=== PATIENT | male | born 1950 | race Caucasian/White ===

== ENCOUNTER 2017-06-21 20:00 | Emergency (ER) | payer MEDICARE, MEDICAID ==
[~2017-06-21] VITALS: Ht 167.6 cm; Wt 78.0 kg
[2017-06-21] MEDS ORDERED: DIPHENHYDRAMINE 50MG/ML VIAL IV ONE (20:15)
[2017-06-21] MEDS ORDERED: FAMOTIDINE 20MG/2ML VIAL IV STA (20:15)
[2017-06-21] MEDS ORDERED: METHYLPREDNISOLONE SOD SUCC 125 MG/2 ML VIAL IV ONE (20:15)
[2017-06-21] MEDS ORDERED: PERMETHRIN 5% CREAM 60GM TOP ONE (20:30)
[2017-06-21 21:02] LABS: CLARITY URINE CLEAR (CLEAR); COLOR URINE YELLOW (YELLOW); GLUCOSE URINE NEGATIVE (NEGATIVE); KETONES URINE NEGATIVE (NEGATIVE); LEUKOCYTE ESTERASE URINE NEGATIVE (NEGATIVE); NITRITE URINE NEGATIVE (NEGATIVE); OCCULT BLOOD URINE TRACE (NEGATIVE); PROTEIN URINE 1+ (NEGATIVE); SPECIFIC GRAVITY URINE 1.013 (1.005-1.030); UROBILINOGEN URINE 0.2 E.U./dL (0.2-1.0)
[2017-06-21 21:11] LABS: *AMPHETAMINES SCREEN URINE NEGATIVE (NEGATIVE); *BARBITURATES SCREEN URINE NEGATIVE (NEGATIVE); *BENZODIAZEPINES SCREEN URINE NEGATIVE (NEGATIVE); *COCAINE SCREEN URINE NEGATIVE (NEGATIVE); CANNABINOID URINE SCREEN NEGATIVE (NEGATIVE); METHADONE URINE SCREEN NEGATIVE (NEGATIVE); OPIATES URINE SCREEN NEGATIVE (NEGATIVE); PHENCYCLIDINE URINE SCREEN NEGATIVE (NEGATIVE)
[2017-06-21 21:37] LABS: BASOPHILS % 1.2 % (0.0-2.0); HEMATOCRIT. 41.5 % (42.0-52.0); HEMOGLOBIN. 14.3 g/dL (14.0-18.0); LYMPHOCYTES % 23.8 % (20.0-50.0); MEAN CORPUSCULAR HEMOGLOBIN 33.4 pg (28.0-32.0); MEAN CORPUSCULAR VOLUME 96.8 fL (80.0-94.0); MEAN PLATELET VOLUME 8.5 fl (7.4-10.4); MONOCYTES % 9.8 % (2.0-8.0); NEUTROPHILS % 63.2 % (40.0-76.0); PLATELET 151 x1000/uL (130-400); RED BLOOD CELL COUNT 4.29 mill/uL (4.7-6.1); RED CELL DISTRIBUTION WIDTH 14.6 % (11.6-14.6)
[2017-06-21 21:38] LABS: INR 1.1
[2017-06-21 21:43] LABS: CARBON DIOXIDE 23 mEq/L (21-32); CHLORIDE 103 mEq/L (98-107); ETHANOL BLOOD 146 mg/dL
[2017-06-21 21:46] LABS: TROPONIN I < 0.02 ng/mL (0.00-0.04)
[2017-06-21 22:30] VITALS: BP 154/99
== END 2017-06-21 23:29 | disposition home or self-care (01) ==
LOC: ER 20:57
DX: B86 Scabies (principal); J40 Bronchitis, not specified as acute or chronic; F10.10 Alcohol abuse, uncomplicated; F17.200 Nicotine dependence, unspecified, uncomplicated; F12.10 Cannabis abuse, uncomplicated; I10 Essential (primary) hypertension; Z88.5 Allergy status to narcotic agent
CPT/HCPCS: 36415; 71010; 80053; 80305; 81001; 83690; 83880; 84484; 85025; 85610; 96374; 96375; 99285; G0482; J1200; J2930; J3490

== ENCOUNTER 2017-06-22 05:09 | Emergency (ER) | payer MEDICARE, MEDICAID ==
[~2017-06-22] VITALS: Ht 167.6 cm; Wt 73.5 kg
[2017-06-22 09:02] LABS: BASOPHILS % 0.4 % (0.0-2.0); HEMATOCRIT. 43.5 % (42.0-52.0); HEMOGLOBIN. 15.2 g/dL (14.0-18.0); LYMPHOCYTES % 15.4 % (20.0-50.0); MEAN CORPUSCULAR HEMOGLOBIN 33.8 pg (28.0-32.0); MEAN CORPUSCULAR VOLUME 96.9 fL (80.0-94.0); MEAN PLATELET VOLUME 8.7 fl (7.4-10.4); MONOCYTES % 5.4 % (2.0-8.0); NEUTROPHILS % 78.8 % (40.0-76.0); PLATELET 145 x1000/uL (130-400); RED BLOOD CELL COUNT 4.49 mill/uL (4.7-6.1); RED CELL DISTRIBUTION WIDTH 14.7 % (11.6-14.6)
[2017-06-22 09:05] LABS: CHLORIDE 97 mEq/L (98-107)
[2017-06-22 09:06] LABS: INR 1.2; PROTHROMBIN TIME 12.3 sec
[2017-06-22 09:15] LABS: CARBON DIOXIDE 24 mEq/L (21-32); TROPONIN I 0.04 ng/mL (0.00-0.04)
[2017-06-22] MEDS ORDERED: HYDRALAZINE HCL 50MG TABLET PO ONE ×2 (11:30→13:00)
[2017-06-22 13:32] VITALS: BP 160/93
== END 2017-06-22 14:30 | disposition home or self-care (01) ==
LOC: ER 08:22
DX: Z00.8 Encounter for other general examination (principal); R07.9 Chest pain, unspecified; R21 Rash and other nonspecific skin eruption; E11.9 Type 2 diabetes mellitus without complications; F03.90 Unspecified dementia, unspecified severity, without behavioral disturbance, psychotic disturbance, mood disturbance, and anxiety; F17.210 Nicotine dependence, cigarettes, uncomplicated
CPT/HCPCS: 36415; 71010; 80053; 83880; 84484; 85025; 85610; 93005; 99285

== ENCOUNTER 2017-06-30 19:38 | Inpatient (IN) | payer MEDICARE, MEDICAID ==
[~2017-06-30] VITALS: Ht 162.6 cm; Wt 74.8 kg
[2017-06-30 23:11] LABS: *AMPHETAMINES SCREEN URINE NEGATIVE (NEGATIVE); *BARBITURATES SCREEN URINE NEGATIVE (NEGATIVE); *BENZODIAZEPINES SCREEN URINE NEGATIVE (NEGATIVE); *COCAINE SCREEN URINE NEGATIVE (NEGATIVE); CANNABINOID URINE SCREEN NEGATIVE (NEGATIVE); METHADONE URINE SCREEN NEGATIVE (NEGATIVE); OPIATES URINE SCREEN NEGATIVE (NEGATIVE); PHENCYCLIDINE URINE SCREEN NEGATIVE (NEGATIVE)
[2017-06-30 23:45] LABS: BASOPHILS % 0.8 % (0.0-2.0); HEMATOCRIT. 37.1 % (42.0-52.0); HEMOGLOBIN. 12.7 g/dL (14.0-18.0); LYMPHOCYTES % 23.1 % (20.0-50.0); MEAN CORPUSCULAR HEMOGLOBIN 34.1 pg (28.0-32.0); MEAN CORPUSCULAR VOLUME 99.8 fL (80.0-94.0); MEAN PLATELET VOLUME 9.8 fl (7.4-10.4); MONOCYTES % 12.2 % (2.0-8.0); NEUTROPHILS % 60.9 % (40.0-76.0); PLATELET 213 x1000/uL (130-400); RED BLOOD CELL COUNT 3.72 mill/uL (4.7-6.1); RED CELL DISTRIBUTION WIDTH 15.5 % (11.6-14.6)
[2017-06-30 23:54] LABS: PROTHROMBIN TIME 10.8 sec
[2017-07-01] LABS: CARBON DIOXIDE 24 mEq/L (21-32); CHLORIDE 105 mEq/L (98-107); ETHANOL BLOOD 43 mg/dL; TROPONIN I < 0.02 ng/mL (0.00-0.04)
[2017-07-01] MEDS ORDERED: NITROGLYCERIN 0.4MG TABLET SL SL PRN ×2 (01:00→01:45)
[2017-07-01] MEDS ORDERED: ASPIRIN 81MG TABLET PO ONE (01:00)
[2017-07-01] MEDS ORDERED: LORAZEPAM 1MG TABLET PO ONE (01:00)
[2017-07-01] MEDS ORDERED: ACETAMINOPHEN 325MG TABLET PO PRN (01:45)
[2017-07-01] MEDS ORDERED: LORAZEPAM 2MG/ML CPJ IV PRN (01:45)
[2017-07-01] MEDS ORDERED: GUAIFENESIN 200MG/10ML SUGAR FREE UDC PO PRN (01:45)
[2017-07-01] MEDS ORDERED: IPRATROPIUM/ALBUTEROL 0.5-3(2.5)MG/3ML NEB INH PRN (01:45)
[2017-07-01] MEDS ORDERED: ONDANSETRON HCL 4MG/2ML VIAL IV PRN (01:45)
[2017-07-01] MEDS ORDERED: NA PHOS,M-B/NA PHOS,DI-BA ENEMA 118ML PR PRN (01:45)
[2017-07-01] MEDS ORDERED: DIPHENHYDRAMINE 50MG/ML VIAL IV PRN (01:45)
[2017-07-01] MEDS ORDERED: MAGNESIUM/ALUMINUM HYDROXIDE/SIMETHICONE 30ML UDC PO PRN (01:45)
[2017-07-01] MEDS ORDERED: CLONIDINE 0.1MG TABLET PO PRN (02:30)
[2017-07-01] MEDS ORDERED: DOCUSATE SODIUM 100MG CAPSULE PO PRN (02:30)
[2017-07-01] MEDS ORDERED: TRAMADOL 50MG TABLET PO PRN (02:33)
[2017-07-01] MEDS ORDERED: MORPHINE SULFATE 2 MG/ML CPJ (NOT FOR IM USE) IV PRN (02:37)
[2017-07-01 07:02] LABS: CREATINE KINASE 138 IU/L (39-308); CREATINE KINASE MB FRACTION 1.6 ng/mL (0.5-3.6); TROPONIN I < 0.02 ng/mL (0.00-0.04)
[2017-07-01 07:31] LABS: FOLIC ACID (FOLATE) SERUM 11.8 ng/mL (>5.38)
[2017-07-01 09:20] VITALS: BP 160/80
[2017-07-01 10:00] VITALS: BP 160/80
[2017-07-01] MEDS: FAMOTIDINE 20MG/2ML VIAL IV SCH ×2 (10:24→20:30)
[2017-07-01] MEDS: ENOXAPARIN 40MG/0.4ML SYR SUBCUT SCH (10:25)
[2017-07-01] MEDS: ASPIRIN 325MG EC TABLET PO SCH (10:25)
[2017-07-01 12:00] VITALS: BP 144/93
[2017-07-01] MEDS: SUCRALFATE 1 G/10 ML UDC PO SCH ×3 (13:07→20:30)
[2017-07-01 16:00] VITALS: BP 169/82
[2017-07-01 18:30] LABS: CREATINE KINASE 114 IU/L (39-308); CREATINE KINASE MB FRACTION 1.4 ng/mL (0.5-3.6); TROPONIN I < 0.02 ng/mL (0.00-0.04)
[2017-07-01 20:00] VITALS: BP 108/78
[2017-07-01] MEDS: AMLODIPINE 5MG TABLET PO SCH (20:31)
[2017-07-01] MEDS ORDERED: ZOLPIDEM TARTRATE 5MG TABLET PO PRN (21:00)
[2017-07-01] MEDS ORDERED: ATORVASTATIN CALCIUM 10MG TABLET PO SCH (21:00)
[2017-07-02 00:19] VITALS: BP 146/84
[2017-07-02 04:00] VITALS: BP 148/79
[2017-07-02 07:00] LABS: EOSINOPHILS % 4.5 % (0.0-5.0); HEMATOCRIT. 35.2 % (42.0-52.0); LYMPHOCYTES % 33.6 % (20.0-50.0); MEAN CORPUSCULAR HEMOGLOBIN 34.1 pg (28.0-32.0); MEAN CORPUSCULAR VOLUME 99.8 fL (80.0-94.0); MEAN PLATELET VOLUME 9.5 fl (7.4-10.4); MONOCYTES % 14.9 % (2.0-8.0); PLATELET 215 x1000/uL (130-400); RED BLOOD CELL COUNT 3.53 mill/uL (4.7-6.1); RED CELL DISTRIBUTION WIDTH 15.5 % (11.6-14.6)
[2017-07-02 08:00] VITALS: BP 148/85
[2017-07-02 08:22] LABS: CARBON DIOXIDE 27 mEq/L (21-32); CHLORIDE 97 mEq/L (98-107); TROPONIN I < 0.02 ng/mL (0.00-0.04)
[2017-07-02] MEDS: AMLODIPINE 5MG TABLET PO SCH (08:37)
[2017-07-02] MEDS: ENOXAPARIN 40MG/0.4ML SYR SUBCUT SCH (08:37)
[2017-07-02] MEDS: ASPIRIN 325MG EC TABLET PO SCH (08:37)
[2017-07-02] MEDS: SUCRALFATE 1 G/10 ML UDC PO SCH (08:37)
[2017-07-02] MEDS: FAMOTIDINE 20MG/2ML VIAL IV SCH (08:42)
[2017-07-02] MEDS ORDERED: PERMETHRIN 5% CREAM 60GM TOP SCH (11:00)
== END 2017-07-02 11:15 | disposition left against medical advice (07) | DRG 392 ==
LOC: ER 20:41 → 7WST 07-01 01:19 → SUPCPDRO 07-01 01:35 → ENRESERV 07-01 08:18
PROVIDERS: ADMIT Internal Medicine; ATTEND Internal Medicine
DX: K21.9 Gastro-esophageal reflux disease without esophagitis (principal); E44.0 Moderate protein-calorie malnutrition; J44.1 Chronic obstructive pulmonary disease with (acute) exacerbation; F10.229 Alcohol dependence with intoxication, unspecified; R27.0 Ataxia, unspecified; I11.9 Hypertensive heart disease without heart failure; D50.9 Iron deficiency anemia, unspecified; E78.5 Hyperlipidemia, unspecified; K73.9 Chronic hepatitis, unspecified; Z53.21 Procedure and treatment not carried out due to patient leaving prior to being seen by health care provider; F12.10 Cannabis abuse, uncomplicated; R07.89 Other chest pain; Z79.899 Other long term (current) drug therapy; Z87.891 Personal history of nicotine dependence; Z81.1 Family history of alcohol abuse and dependence
CPT/HCPCS: 36415; 71010; 80048; 80053; 80061; 80305; 82550; 82553; 82607; 82746; 83036; 83540; 83550; 83880; 84484; 85025; 85610; 93005; 93306; 93970; 94640; 96372; 96374; 97162; 97166; 99285; G0482; J1650; J3490; J7620

== ENCOUNTER 2017-07-11 16:02 | Emergency (ER) | payer MEDICARE, MEDICAID ==
[~2017-07-11] VITALS: Ht 167.6 cm; Wt 70.0 kg
[2017-07-11 19:28] VITALS: BP 207/104
== END 2017-07-11 19:16 | disposition home or self-care (01) ==
LOC: ER 16:14
DX: R07.9 Chest pain, unspecified (principal); I10 Essential (primary) hypertension; Z88.5 Allergy status to narcotic agent
CPT/HCPCS: 93005; 99283

== ENCOUNTER 2017-07-27 00:24 | Inpatient (IN) | payer MEDICARE, MEDICAID ==
[~2017-07-27] VITALS: Ht 167.6 cm; Wt 71.3 kg
[2017-07-27] VITALS (53 sets, daily range): BP systolic 102–170; BP diastolic 58–99
[2017-07-27] MEDS ORDERED: ONDANSETRON HCL 4MG/2ML VIAL IV STA (01:34)
[2017-07-27] MEDS ORDERED: SODIUM CHLORIDE 0.9% 1,000 ML IV ONE ×2 (01:34)
[2017-07-27 02:26] LABS: BASOPHILS % 0.6 % (0.0-2.0); EOSINOPHILS % 6.9 % (0.0-5.0); HEMOGLOBIN. 13.1 g/dL (14.0-18.0); LYMPHOCYTES % 45.2 % (20.0-50.0); MEAN CORPUSCULAR VOLUME 101.5 fL (80.0-94.0); MEAN PLATELET VOLUME 9.5 fl (7.4-10.4); MONOCYTES % 12.4 % (2.0-8.0); NEUTROPHILS % 34.9 % (40.0-76.0); PLATELET 155 x1000/uL (130-400); RED BLOOD CELL COUNT 3.85 mill/uL (4.7-6.1); RED CELL DISTRIBUTION WIDTH 15.3 % (11.6-14.6)
[2017-07-27 02:35] LABS: CARBON DIOXIDE 22 mEq/L (21-32); CHLORIDE 104 mEq/L (98-107)
[2017-07-27] MEDS ORDERED: DEXAMETHASONE 10 MG/ML VIAL IV ONE (05:15)
[2017-07-27] MEDS ORDERED: PHENYTOIN SODIUM 1,000 MG in SODIUM CHLORIDE 0.9% 100 ML IV ONE (05:15)
[2017-07-27] MEDS ORDERED: PHENYTOIN SODIUM 100MG/2ML VIAL IV ONE (05:28)
[2017-07-27] MEDS ORDERED: MANNITOL 12.5G (25%) VIAL 50ML IV ONE (05:30)
[2017-07-27] MEDS ORDERED: LORAZEPAM 2MG/ML CPJ IV ONE (05:30)
[2017-07-27] MEDS ORDERED: MANNITOL 20% 500 ML IV ONE (09:15)
[2017-07-27] MEDS ORDERED: ONDANSETRON HCL 4MG/2ML VIAL IV PRN (09:15)
[2017-07-27] MEDS ORDERED: MANNITOL 20% 125 ML IV ONE (09:15)
[2017-07-27] MEDS ORDERED: DEXTROSE 50% WATER 50ML SYRINGE IV PRN (09:30)
[2017-07-27] MEDS: POTASSIUM CHLORIDE INJ 40 MEQ in SODIUM CHLORIDE 0.9% 250 ML IV SCH ×2 (09:58→14:00)
[2017-07-27] MEDS ORDERED: POTASSIUM CHLORIDE INJ 40 MEQ in DEXT 5% WATER 500 ML IV SCH (10:00)
[2017-07-27] MEDS ORDERED: MANNITOL 20% (20GM/100ML) BAG 500ML PREMIX IV SCH (10:00)
[2017-07-27 10:03] LABS: BG BASE EXCESS -7.1 mmol/L (-2.0-2.0); BG CARBOXYHEMOGLOBIN 0.8 % (0.5-1.5); BG DEOXYHEMOGLOBIN 6.6 % (0.0-5.0); BG FRACTION INSPIRED OXYGEN 32; BG HCO3 ACT 20.1 mmol/L (22.0-26.0); BG METHEMOGLOBIN 0.4 % (0.0-1.5); BG OXYGEN SATURATION 93.3 % (92.0-98.5); BG OXYHEMOGLOBIN 92.2 % (94.0-97.0); BG PCO2 46.6 mmHg (35.0-45.0); BG PH 7.253 (7.350-7.450); BG PO2 82.6 mmHg (75.0-100.0); BG SAMPLE SITE RIGHT BRACHIAL; BG VENT MODE NASAL CANNULA
[2017-07-27 10:18] LABS: CLARITY URINE CLEAR (CLEAR); COLOR URINE YELLOW (YELLOW); GLUCOSE URINE NEGATIVE (NEGATIVE); KETONES URINE NEGATIVE (NEGATIVE); LEUKOCYTE ESTERASE URINE NEGATIVE (NEGATIVE); NITRITE URINE NEGATIVE (NEGATIVE); OCCULT BLOOD URINE 1+ (NEGATIVE); PROTEIN URINE NEGATIVE (NEGATIVE); SPECIFIC GRAVITY URINE 1.007 (1.005-1.030); UROBILINOGEN URINE 0.2 E.U./dL (0.2-1.0)
[2017-07-27 10:54] LABS: *AMPHETAMINES SCREEN URINE NEGATIVE (NEGATIVE); *BARBITURATES SCREEN URINE NEGATIVE (NEGATIVE); *BENZODIAZEPINES SCREEN URINE NEGATIVE (NEGATIVE); *COCAINE SCREEN URINE NEGATIVE (NEGATIVE); CANNABINOID URINE SCREEN NEGATIVE (NEGATIVE); METHADONE URINE SCREEN NEGATIVE (NEGATIVE); OPIATES URINE SCREEN NEGATIVE (NEGATIVE); PHENCYCLIDINE URINE SCREEN NEGATIVE (NEGATIVE)
[2017-07-27] MEDS ORDERED: IPRATROPIUM/ALBUTEROL 0.5-3(2.5)MG/3ML NEB HHN PRN (11:30)
[2017-07-27] MEDS: BLOOD SUGAR DIAGNOSTIC STRIP TEST SCH ×3 (11:30→21:00)
[2017-07-27] MEDS: INSULIN LISPRO 100 UNITS/ML SUBCUT SCH ×3 (12:00→22:12)
[2017-07-27] MEDS: DEXT 5%/LACTATED RINGERS 1,000 ML IV SCH (13:46)
[2017-07-27] MEDS: PHENYTOIN SODIUM 100MG/2ML VIAL IV SCH ×2 (13:51→22:14)
[2017-07-27] MEDS ORDERED: POTASSIUM CHLORIDE INJ 40 MEQ in DEXT 5% WATER 500 ML IV NR (14:00)
[2017-07-27 14:31] LABS: HEPATITIS B SURFACE ANTIGEN NEGATIVE
[2017-07-27 14:59] LABS: HEPATITIS B CORE AB IGM NEGATIVE
[2017-07-27 15:01] LABS: HEPATITIS A AB IGM NEGATIVE (NEGATIVE)
[2017-07-27] MEDS: LORAZEPAM 2MG/ML CPJ IV PRN (15:53)
[2017-07-27] MEDS: DEXAMETHASONE 4MG/ML 1ML VIAL IV SCH (17:19)
[2017-07-27] MEDS: NICARDIPINE 100 MG in SODIUM CHLORIDE 0.9% 60 ML IV PRN (18:19)
[2017-07-28] VITALS (72 sets, daily range): BP systolic 89–193; BP diastolic 36–125
[2017-07-28 00:03] LABS: AMMONIA 44 uMol/L (<32)
[2017-07-28] MEDS: DEXAMETHASONE 4MG/ML 1ML VIAL IV SCH ×3 (00:24→12:14)
[2017-07-28] MEDS: LORAZEPAM 2MG/ML CPJ IV PRN ×3 (05:18→20:06)
[2017-07-28] MEDS: PHENYTOIN SODIUM 100MG/2ML VIAL IV SCH (05:18)
[2017-07-28 05:52] LABS: BASOPHILS % 0.4 % (0.0-2.0); HEMATOCRIT. 39.7 % (42.0-52.0); HEMOGLOBIN. 13.5 g/dL (14.0-18.0); LYMPHOCYTES % 11.1 % (20.0-50.0); MEAN CORPUSCULAR HEMOGLOBIN 33.8 pg (28.0-32.0); MEAN CORPUSCULAR VOLUME 99.8 fL (80.0-94.0); MEAN PLATELET VOLUME 10.3 fl (7.4-10.4); MONOCYTES % 8.3 % (2.0-8.0); NEUTROPHILS % 80.2 % (40.0-76.0); PLATELET 153 x1000/uL (130-400); RED BLOOD CELL COUNT 3.98 mill/uL (4.7-6.1); RED CELL DISTRIBUTION WIDTH 15.4 % (11.6-14.6)
[2017-07-28] MEDS: INSULIN LISPRO 100 UNITS/ML SUBCUT SCH ×4 (06:06→21:02)
[2017-07-28] MEDS: BLOOD SUGAR DIAGNOSTIC STRIP TEST SCH ×4 (06:06→20:56)
[2017-07-28 06:32] LABS: CARBON DIOXIDE 25 mEq/L (21-32); CHLORIDE 103 mEq/L (98-107)
[2017-07-28] MEDS: DEXT 5%/LACTATED RINGERS 1,000 ML IV SCH ×2 (06:37→23:05)
[2017-07-28 07:31] LABS: BG BASE EXCESS 4.2 mmol/L (-2.0-2.0); BG CARBOXYHEMOGLOBIN 0.6 % (0.5-1.5); BG DEOXYHEMOGLOBIN 6.6 % (0.0-5.0); BG HCO3 ACT 27.5 mmol/L (22.0-26.0); BG METHEMOGLOBIN 0.4 % (0.0-1.5); BG OXYGEN SATURATION 93.3 % (92.0-98.5); BG OXYHEMOGLOBIN 92.4 % (94.0-97.0); BG PCO2 36.7 mmHg (35.0-45.0); BG PH 7.492 (7.350-7.450); BG PO2 64.7 mmHg (75.0-100.0); BG SAMPLE SITE RIGHT RADIAL; BG TOTAL HEMOGLOBIN 14.6 g/dL (12.0-18.0); BG VENT MODE ROOM AIR
[2017-07-28] MEDS ORDERED: POTASSIUM CHLORIDE 20MEQ/PACKET PO SCH (08:15)
[2017-07-28] MEDS ORDERED: MAGNESIUM 2 G PREMIX 50 ML IV SCH (09:00)
[2017-07-28] MEDS ORDERED: THIAMINE HCL 100MG TABLET PO NR (09:30)
[2017-07-28] MEDS ORDERED: CLONIDINE 0.1MG TABLET PO PRN (09:30)
[2017-07-28] MEDS ORDERED: NICOTINE 21MG PATCH TD NR (09:30)
[2017-07-28] MEDS: CARVEDILOL 12.5MG TABLET PO SCH ×2 (09:57→21:02)
[2017-07-28] MEDS: MULTIVITAMINS,THER W-MINERALS TABLET PO SCH (09:57)
[2017-07-28] MEDS: FOLIC ACID 1MG TABLET PO SCH (09:58)
[2017-07-28] MEDS ORDERED: IPRATROPIUM/ALBUTEROL 0.5-3(2.5)MG/3ML NEB HHN PRN (10:00)
[2017-07-28] MEDS: CHLORDIAZEPOXIDE 5 MG CAPSULE PO SCH ×3 (11:43→21:01)
[2017-07-28 12:04] LABS: T4 FREE 0.89 ng/dL (0.76-1.46)
[2017-07-28] MEDS ORDERED: PERMETHRIN 5% CREAM 60GM TOP SCH (13:00)
[2017-07-28] MEDS: HALOPERIDOL LACTATE 5MG/ML VIAL IM PRN ×2 (13:34→22:22)
[2017-07-28 13:54] LABS: AMMONIA 38 uMol/L (<32)
[2017-07-28] MEDS ORDERED: PHENYTOIN SODIUM EXTENDED 100MG CAPSULE PO SCH (14:00)
[2017-07-28] MEDS: IPRATROPIUM/ALBUTEROL 0.5-3(2.5)MG/3ML NEB HHN SCH ×2 (14:24→20:14)
[2017-07-28] MEDS: NICARDIPINE 100 MG in SODIUM CHLORIDE 0.9% 60 ML IV PRN (20:05)
[2017-07-28] MEDS: RISPERIDONE 0.5MG TABLET PO SCH (21:02)
[2017-07-29] VITALS (48 sets, daily range): BP systolic 105–169; BP diastolic 29–124
[2017-07-29] MEDS: LORAZEPAM 2MG/ML CPJ IV PRN ×4 (01:12→21:46)
[2017-07-29] MEDS: IPRATROPIUM/ALBUTEROL 0.5-3(2.5)MG/3ML NEB HHN SCH ×4 (01:55→20:41)
[2017-07-29] MEDS: CHLORDIAZEPOXIDE 5 MG CAPSULE PO SCH ×3 (05:57→21:28)
[2017-07-29] MEDS: OMEPRAZOLE 20MG CAPSULE EXTENDED RELEASE PO SCH (05:58)
[2017-07-29] MEDS: INSULIN LISPRO 100 UNITS/ML SUBCUT SCH ×4 (05:59→20:23)
[2017-07-29 06:25] LABS: BASOPHILS % 0.4 % (0.0-2.0); HEMATOCRIT. 43.6 % (42.0-52.0); HEMOGLOBIN. 14.9 g/dL (14.0-18.0); LYMPHOCYTES % 14.4 % (20.0-50.0); MEAN CORPUSCULAR VOLUME 99.5 fL (80.0-94.0); MEAN PLATELET VOLUME 10.7 fl (7.4-10.4); MONOCYTES % 11.5 % (2.0-8.0); NEUTROPHILS % 73.7 % (40.0-76.0); PLATELET 170 x1000/uL (130-400); RED BLOOD CELL COUNT 4.38 mill/uL (4.7-6.1); RED CELL DISTRIBUTION WIDTH 15.1 % (11.6-14.6)
[2017-07-29] MEDS: BLOOD SUGAR DIAGNOSTIC STRIP TEST SCH ×4 (06:30→20:19)
[2017-07-29 07:55] LABS: CARBON DIOXIDE 26 mEq/L (21-32); CHLORIDE 100 mEq/L (98-107); PHOSPHORUS 2.4 mg/dL (2.5-4.9)
[2017-07-29] MEDS: MULTIVITAMINS,THER W-MINERALS TABLET PO SCH (08:17)
[2017-07-29] MEDS: THIAMINE HCL 100MG TABLET PO SCH (08:18)
[2017-07-29] MEDS: NICOTINE 21MG PATCH TD SCH (08:19)
[2017-07-29] MEDS: CARVEDILOL 12.5MG TABLET PO SCH ×2 (08:19→20:01)
[2017-07-29] MEDS: FOLIC ACID 1MG TABLET PO SCH (08:19)
[2017-07-29] MEDS: HALOPERIDOL LACTATE 5MG/ML VIAL IM PRN (16:30)
[2017-07-29] MEDS: RISPERIDONE 0.5MG TABLET PO SCH (20:22)
[2017-07-30] VITALS (46 sets, daily range): BP systolic 89–179; BP diastolic 45–102
[2017-07-30] MEDS: IPRATROPIUM/ALBUTEROL 0.5-3(2.5)MG/3ML NEB HHN SCH ×4 (02:29→20:10)
[2017-07-30] MEDS: LORAZEPAM 2MG/ML CPJ IV PRN ×3 (04:19→22:52)
[2017-07-30] MEDS: BLOOD SUGAR DIAGNOSTIC STRIP TEST SCH ×4 (06:05→20:29)
[2017-07-30] MEDS: INSULIN LISPRO 100 UNITS/ML SUBCUT SCH ×4 (06:31→20:40)
[2017-07-30] MEDS: OMEPRAZOLE 20MG CAPSULE EXTENDED RELEASE PO SCH (06:56)
[2017-07-30] MEDS: CHLORDIAZEPOXIDE 5 MG CAPSULE PO SCH ×3 (06:56→22:10)
[2017-07-30] MEDS: THIAMINE HCL 100MG TABLET PO SCH (08:52)
[2017-07-30] MEDS: FOLIC ACID 1MG TABLET PO SCH (08:52)
[2017-07-30] MEDS: MULTIVITAMINS,THER W-MINERALS TABLET PO SCH (08:52)
[2017-07-30] MEDS: CARVEDILOL 12.5MG TABLET PO SCH ×2 (08:53→20:39)
[2017-07-30] MEDS: NICOTINE 21MG PATCH TD SCH (09:41)
[2017-07-30] MEDS ORDERED: LACTULOSE 20G/30ML UDC PO PRN (11:00)
[2017-07-30] MEDS ORDERED: LACTULOSE 20G/30ML UDC PO NR (11:00)
[2017-07-30] MEDS: METHYLPREDNISOLONE SOD SUCC 40 MG/ML VIAL IV SCH ×3 (11:45→22:10)
[2017-07-30] MEDS: DOCUSATE SODIUM 250MG CAPSULE PO SCH (11:45)
[2017-07-30] MEDS: RISPERIDONE 0.5MG TABLET PO SCH (16:22)
[2017-07-30] MEDS: BUDESONIDE 0.5MG/2ML NEB HHN SCH (20:10)
[2017-07-31] VITALS (36 sets, daily range): BP systolic 111–161; BP diastolic 65–106
[2017-07-31] MEDS: IPRATROPIUM/ALBUTEROL 0.5-3(2.5)MG/3ML NEB HHN SCH ×4 (01:20→19:59)
[2017-07-31] MEDS: INSULIN LISPRO 100 UNITS/ML SUBCUT SCH ×4 (05:52→21:06)
[2017-07-31] MEDS: BLOOD SUGAR DIAGNOSTIC STRIP TEST SCH ×4 (05:52→21:11)
[2017-07-31] MEDS: CHLORDIAZEPOXIDE 5 MG CAPSULE PO SCH ×3 (05:56→21:05)
[2017-07-31] MEDS: OMEPRAZOLE 20MG CAPSULE EXTENDED RELEASE PO SCH (05:56)
[2017-07-31] MEDS: METHYLPREDNISOLONE SOD SUCC 40 MG/ML VIAL IV SCH (05:56)
[2017-07-31] MEDS: BUDESONIDE 0.5MG/2ML NEB HHN SCH ×2 (08:29→19:59)
[2017-07-31] MEDS: MULTIVITAMINS,THER W-MINERALS TABLET PO SCH (09:26)
[2017-07-31] MEDS: DOCUSATE SODIUM 250MG CAPSULE PO SCH (09:26)
[2017-07-31] MEDS: THIAMINE HCL 100MG TABLET PO SCH (09:27)
[2017-07-31] MEDS: CARVEDILOL 12.5MG TABLET PO SCH ×2 (09:27→21:06)
[2017-07-31] MEDS: NICOTINE 21MG PATCH TD SCH (09:28)
[2017-07-31] MEDS: FOLIC ACID 1MG TABLET PO SCH (09:28)
[2017-07-31] MEDS: RISPERIDONE 0.5MG TABLET PO SCH ×2 (09:28→16:21)
[2017-07-31] MEDS ORDERED: COR12 PO (12:12)
[2017-07-31] MEDS ORDERED: FOLI-43 PO (12:12)
[2017-07-31] MEDS ORDERED: RISP05 PO (12:12)
[2017-07-31] MEDS ORDERED: DUONEB3 ML HHN (12:12)
[2017-07-31] MEDS ORDERED: P20 PO (12:12)
[2017-07-31] MEDS ORDERED: PULM50 HHN (12:12)
[2017-07-31] MEDS ORDERED: OMEP20CA10 PO (12:12)
[2017-07-31] MEDS ORDERED: THIA100T72 PO (12:12)
[2017-07-31] MEDS: PREDNISONE 20MG TABLET PO SCH (16:21)
[2017-07-31] MEDS: LORAZEPAM 2MG/ML CPJ IV PRN (22:31)
[2017-08-01] VITALS (31 sets, daily range): BP systolic 99–182; BP diastolic 51–123
[2017-08-01] MEDS: LORAZEPAM 2MG/ML CPJ IV PRN (01:43)
[2017-08-01] MEDS: IPRATROPIUM/ALBUTEROL 0.5-3(2.5)MG/3ML NEB HHN SCH ×4 (02:11→20:27)
[2017-08-01 05:32] LABS: AMMONIA 48 uMol/L (<32)
[2017-08-01] MEDS: OMEPRAZOLE 20MG CAPSULE EXTENDED RELEASE PO SCH (05:51)
[2017-08-01] MEDS: CHLORDIAZEPOXIDE 5 MG CAPSULE PO SCH ×2 (05:51→15:22)
[2017-08-01] MEDS: INSULIN LISPRO 100 UNITS/ML SUBCUT SCH ×3 (06:32→16:25)
[2017-08-01] MEDS: BLOOD SUGAR DIAGNOSTIC STRIP TEST SCH ×3 (06:33→16:26)
[2017-08-01] MEDS: PREDNISONE 20MG TABLET PO SCH ×2 (09:06→16:24)
[2017-08-01] MEDS: THIAMINE HCL 100MG TABLET PO SCH (09:06)
[2017-08-01] MEDS: DOCUSATE SODIUM 250MG CAPSULE PO SCH (09:06)
[2017-08-01] MEDS: FOLIC ACID 1MG TABLET PO SCH (09:06)
[2017-08-01] MEDS: RISPERIDONE 0.5MG TABLET PO SCH ×2 (09:07→16:23)
[2017-08-01] MEDS: CARVEDILOL 12.5MG TABLET PO SCH (09:08)
[2017-08-01] MEDS: MULTIVITAMINS,THER W-MINERALS TABLET PO SCH (09:08)
[2017-08-01] MEDS: NICOTINE 21MG PATCH TD SCH (09:08)
[2017-08-01] MEDS: BUDESONIDE 0.5MG/2ML NEB HHN SCH ×2 (09:35→20:27)
== END 2017-08-01 20:30 | DRG 64 ==
LOC: ER 02:57 → EDBEDREQ 06:07 → ENRESERV 07:36 → MICUNO 08:53
PROVIDERS: ADMIT Family Medicine; ATTEND Family Medicine
DX: I61.1 Nontraumatic intracerebral hemorrhage in hemisphere, cortical (principal); G92 Toxic encephalopathy; J96.00 Acute respiratory failure, unspecified whether with hypoxia or hypercapnia; F10.221 Alcohol dependence with intoxication delirium; J44.1 Chronic obstructive pulmonary disease with (acute) exacerbation; E11.9 Type 2 diabetes mellitus without complications; D64.9 Anemia, unspecified; I10 Essential (primary) hypertension; S01.81XA Laceration without foreign body of other part of head, initial encounter; F17.210 Nicotine dependence, cigarettes, uncomplicated; I51.7 Cardiomegaly; W18.30XA Fall on same level, unspecified, initial encounter; E87.6 Hypokalemia; E83.42 Hypomagnesemia; M47.812 Spondylosis without myelopathy or radiculopathy, cervical region; R62.7 Adult failure to thrive; Y90.9 Presence of alcohol in blood, level not specified; B19.20 Unspecified viral hepatitis C without hepatic coma; E66.9 Obesity, unspecified; Z68.25 Body mass index [BMI] 25.0-25.9, adult; Z88.8 Allergy status to other drugs, medicaments and biological substances; Y93.89 Activity, other specified; Y92.89 Other specified places as the place of occurrence of the external cause; Y99.8 Other external cause status
CPT/HCPCS: 36415; 36600; 51702; 70450; 70486; 71010; 72125; 72170; 80048; 80053; 80305; 81001; 82140; 82375; 82550; 82805; 82962; 83036; 83735; 84100; 84439; 84443; 84481; 85025; 86705; 86709; 86803; 87186; 87340; 94640; 94664; 95816; 96361; 96365; 96375; 97116; 97162; 97166; 97530; 99291; G0482; J1100; J1165; J1630; J1815; J2060; J2150; J2405; J2920; J3475; J3480; J3490; J7030; J7050; J7060; J7121; J7512; J7620; J7626; A4315

== ENCOUNTER 2017-08-30 13:56 | Inpatient (IN) | payer MEDICARE, MEDICAID ==
[~2017-08-30] VITALS: Ht 162.6 cm; Wt 75.3 kg
[~2017-08-30 13:56] MED LIST: COR12 PO; DUONEB3 ML HHN; FOLI-43 PO; OMEP20CA10 PO; P20 PO; PULM50 HHN; RISP05 PO; THIA100T72 PO
[2017-08-30] MEDS ORDERED: SODIUM CHLORIDE 0.9% 1,000 ML IV ONE ×2 (14:16→15:47)
[2017-08-30 14:40] LABS: BASOPHILS % 0.8 % (0.0-2.0); EOSINOPHILS % 3.7 % (0.0-5.0); HEMATOCRIT. 39.3 % (42.0-52.0); HEMOGLOBIN. 13.4 g/dL (14.0-18.0); LYMPHOCYTES % 32.2 % (20.0-50.0); MEAN CORPUSCULAR VOLUME 100.1 fL (80.0-94.0); MEAN PLATELET VOLUME 8.4 fl (7.4-10.4); MONOCYTES % 13.6 % (2.0-8.0); NEUTROPHILS % 49.7 % (40.0-76.0); PLATELET 255 x1000/uL (130-400); RED BLOOD CELL COUNT 3.93 mill/uL (4.7-6.1); RED CELL DISTRIBUTION WIDTH 14.4 % (11.6-14.6)
[2017-08-30] MEDS ORDERED: CARVEDILOL 12.5MG TABLET PO ONE (14:45)
[2017-08-30 14:48] LABS: INR 1.1; PROTHROMBIN TIME 11.4 sec (9.4-11.6)
[2017-08-30 14:56] LABS: CARBON DIOXIDE 25 mEq/L (21-32); CHLORIDE 106 mEq/L (98-107); ETHANOL BLOOD 60 mg/dL; TROPONIN I < 0.02 ng/mL (0.00-0.04)
[2017-08-30] MEDS ORDERED: PERMETHRIN 5% CREAM 60GM TOP ONE (15:00)
[2017-08-30] MEDS ORDERED: CHLORDIAZEPOXIDE 25MG CAPSULE PO ONE (15:00)
[2017-08-30] MEDS ORDERED: HYDROCODONE/ACETAMINOPHEN 5/325MG TABLET PO PRN (20:00)
[2017-08-30] MEDS ORDERED: GUAIFENESIN 200MG/10ML SUGAR FREE UDC PO PRN (20:00)
[2017-08-30] MEDS ORDERED: DOCUSATE SODIUM 100MG CAPSULE PO PRN (20:00)
[2017-08-30] MEDS ORDERED: IPRATROPIUM/ALBUTEROL 0.5-3(2.5)MG/3ML NEB INH PRN (20:00)
[2017-08-30] MEDS ORDERED: ONDANSETRON HCL 4MG/2ML VIAL IV PRN (20:00)
[2017-08-30 20:56] LABS: CLARITY URINE CLOUDY (CLEAR); COLOR URINE YELLOW (YELLOW); GLUCOSE URINE NEGATIVE (NEGATIVE); KETONES URINE NEGATIVE (NEGATIVE); LEUKOCYTE ESTERASE URINE 2+ (NEGATIVE); NITRITE URINE NEGATIVE (NEGATIVE); OCCULT BLOOD URINE NEGATIVE (NEGATIVE); PH URINE 7.5 (4.5-8.0); PROTEIN URINE 2+ (NEGATIVE); SPECIFIC GRAVITY URINE 1.018 (1.005-1.030)
[2017-08-30] MEDS ORDERED: CLONIDINE 0.1MG TABLET PO PRN (21:00)
[2017-08-30 21:07] LABS: *AMPHETAMINES SCREEN URINE NEGATIVE (NEGATIVE); *BARBITURATES SCREEN URINE NEGATIVE (NEGATIVE); *BENZODIAZEPINES SCREEN URINE NEGATIVE (NEGATIVE); *COCAINE SCREEN URINE NEGATIVE (NEGATIVE); CANNABINOID URINE SCREEN NEGATIVE (NEGATIVE); METHADONE URINE SCREEN NEGATIVE (NEGATIVE); OPIATES URINE SCREEN NEGATIVE (NEGATIVE); PHENCYCLIDINE URINE SCREEN NEGATIVE (NEGATIVE)
[2017-08-30] MEDS: SODIUM CHLORIDE 0.9% INJ 3ML FLUSH IVF SCH (22:00)
[2017-08-30 23:00] VITALS: BP 173/78
[2017-08-30 23:52] LABS: CREATINE KINASE 148 IU/L (39-308); TROPONIN I < 0.02 ng/mL (0.00-0.04)
[2017-08-31] VITALS (7 sets, daily range): BP systolic 117–184; BP diastolic 47–98
[2017-08-31] MEDS ORDERED: ACETAMINOPHEN 325MG TABLET PO PRN (03:30)
[2017-08-31] MEDS ORDERED: POTASSIUM CHLORIDE 20MEQ TABLET SR PO NR (04:00)
[2017-08-31] MEDS: DIPHENHYDRAMINE 25MG CAPSULE PO PRN ×2 (06:55→22:46)
[2017-08-31] MEDS: SODIUM CHLORIDE 0.9% INJ 3ML FLUSH IVF SCH ×3 (06:56→21:38)
[2017-08-31] MEDS: AMLODIPINE 10MG TABLET PO SCH (06:56)
[2017-08-31] MEDS: ENOXAPARIN 40MG/0.4ML SYR SUBCUT SCH (08:44)
[2017-08-31] MEDS: CARVEDILOL 12.5MG TABLET PO SCH ×2 (08:44→21:41)
[2017-08-31 09:44] LABS: BASOPHILS % 0.7 % (0.0-2.0); EOSINOPHILS % 7.5 % (0.0-5.0); HEMATOCRIT. 39.4 % (42.0-52.0); HEMOGLOBIN. 13.5 g/dL (14.0-18.0); LYMPHOCYTES % 31.4 % (20.0-50.0); MEAN CORPUSCULAR VOLUME 99.5 fL (80.0-94.0); MEAN PLATELET VOLUME 9.4 fl (7.4-10.4); MONOCYTES % 12.2 % (2.0-8.0); NEUTROPHILS % 48.2 % (40.0-76.0); PLATELET 229 x1000/uL (130-400); RED BLOOD CELL COUNT 3.96 mill/uL (4.7-6.1); RED CELL DISTRIBUTION WIDTH 14.4 % (11.6-14.6)
[2017-08-31] MEDS: ASPIRIN 81MG TABLET PO SCH (09:48)
[2017-08-31 10:10] LABS: CARBON DIOXIDE 27 mEq/L (21-32); CHLORIDE 103 mEq/L (98-107); CREATINE KINASE 128 IU/L (39-308); HDL CHOLESTEROL 66 mg/dL (40-59); LDL CHOLESTEROL 114 mg/dL (5-100); TROPONIN I < 0.02 ng/mL (0.00-0.04)
[2017-08-31 13:16] LABS: T4 FREE 1.07 ng/dL (0.76-1.46)
[2017-08-31] MEDS ORDERED: REGADENOSON 0.4 MG/5 ML IV NR (13:30)
[2017-08-31] MEDS ORDERED: NICOTINE 7MG PATCH TD SCH (15:00)
[2017-08-31] MEDS: LOSARTAN POTASSIUM 50 MG TABLET PO SCH (15:09)
[2017-08-31] MEDS: OMEPRAZOLE 20MG CAPSULE EXTENDED RELEASE PO SCH (18:00)
[2017-08-31] MEDS ORDERED: BUDESONIDE 0.5MG/2ML NEB HHN SCH (18:00)
[2017-08-31] MEDS: FOLIC ACID 1MG TABLET PO SCH (18:00)
[2017-08-31] MEDS: THIAMINE HCL 100MG TABLET PO SCH (18:00)
[2017-08-31] MEDS: PREDNISONE 20MG TABLET PO SCH (18:01)
[2017-08-31] MEDS: RISPERIDONE 0.5MG TABLET PO SCH (18:01)
[2017-08-31] MEDS: IPRATROPIUM/ALBUTEROL 0.5-3(2.5)MG/3ML NEB HHN SCH (21:04)
[2017-09-01] VITALS: BP 139/74
[2017-09-01] MEDS: IPRATROPIUM/ALBUTEROL 0.5-3(2.5)MG/3ML NEB HHN SCH ×2 (01:04→08:28)
[2017-09-01 04:00] VITALS: BP 145/84
[2017-09-01] MEDS: OMEPRAZOLE 20MG CAPSULE EXTENDED RELEASE PO SCH (05:20)
[2017-09-01] MEDS: SODIUM CHLORIDE 0.9% INJ 3ML FLUSH IVF SCH (05:20)
[2017-09-01 08:00] VITALS: BP 144/78
[2017-09-01] MEDS ORDERED: REGADENOSON 0.4 MG/5 ML IV ONE (08:23)
[2017-09-01 11:18] VITALS: BP 178/83
[2017-09-01] MEDS: AMLODIPINE 10MG TABLET PO SCH (11:50)
[2017-09-01] MEDS: PREDNISONE 20MG TABLET PO SCH (11:51)
[2017-09-01] MEDS: FOLIC ACID 1MG TABLET PO SCH (11:51)
[2017-09-01] MEDS: CARVEDILOL 12.5MG TABLET PO SCH (11:51)
[2017-09-01] MEDS: LOSARTAN POTASSIUM 50 MG TABLET PO SCH (11:51)
[2017-09-01] MEDS: THIAMINE HCL 100MG TABLET PO SCH (11:51)
[2017-09-01] MEDS: ASPIRIN 81MG TABLET PO SCH (11:51)
[2017-09-01] MEDS: ENOXAPARIN 40MG/0.4ML SYR SUBCUT SCH (11:56)
[2017-09-01] MEDS: RISPERIDONE 0.5MG TABLET PO SCH (11:59)
[2017-09-01 13:07] VITALS: BP 178/83
[2017-09-01 13:57] VITALS: BP 96/60
[2017-09-02] MEDS ORDERED: FAMOTIDINE 20MG TABLET PO SCH (09:00)
== END 2017-09-01 14:30 | disposition home or self-care (01) | DRG 392 ==
LOC: ER 14:08 → EDBEDREQ 14:53 → 8WST 15:48 → ENRESERV 21:41
PROVIDERS: ADMIT Family Medicine; ATTEND Family Medicine
DX: K21.9 Gastro-esophageal reflux disease without esophagitis (principal); J44.9 Chronic obstructive pulmonary disease, unspecified; E11.9 Type 2 diabetes mellitus without complications; B86 Scabies; B19.20 Unspecified viral hepatitis C without hepatic coma; D50.0 Iron deficiency anemia secondary to blood loss (chronic); I10 Essential (primary) hypertension; F29 Unspecified psychosis not due to a substance or known physiological condition; R74.0 Nonspecific elevation of levels of transaminase and lactic acid dehydrogenase [LDH]; F10.20 Alcohol dependence, uncomplicated; Y90.3 Blood alcohol level of 60-79 mg/100 ml; E87.6 Hypokalemia; F17.200 Nicotine dependence, unspecified, uncomplicated; E78.5 Hyperlipidemia, unspecified; E66.9 Obesity, unspecified; Z91.14 Patient's other noncompliance with medication regimen; Z68.28 Body mass index [BMI] 28.0-28.9, adult; Z79.899 Other long term (current) drug therapy; Z88.5 Allergy status to narcotic agent
CPT/HCPCS: 36415; 71010; 78452; 80053; 80061; 80305; 81001; 82550; 82553; 83036; 83880; 84439; 84443; 84484; 85025; 85379; 85610; 93005; 93017; 93970; 94640; 99285; A9500; G0482; J1650; J2785; J7030; J7512; J7620; J7626; Q0163